=== PATIENT | female | born 2000 | race Two or more races ===

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

== ENCOUNTER 2019-03-06 18:00 | Inpatient (IN) | payer OTHER ==
[~2019-03-06] VITALS: Ht 177.8 cm; Wt 54.4 kg
[~2019-03-06 18:00] MED LIST: ZANTAC150 MG PO
--- NOTE | 2019-03-06 18:23 | NUR ---
PACIENTE ALERTA, ORIENTADA X 3 REFIERE QUE EN LA TARDE DE [place] [facility] PRTESENTADO VOMITOS EXPONTANEOS , MAS DE 8 EPISODIOS DE VOMITOS REFIERE SE SIENTE DEBIL Y SIN FUERZAS. SE UBICA EN OBSERRVACION
--- NOTE | 2019-03-06 18:51 | NUR ---
SE ORIENTA PTE SOBRE TX MEDICO EL CUAL REFIERE ENTENDER.SE LE EXTRAEN MUESTRAS BAJO MEDIDAS ASEPTICAS,SE CANALIZA Y SE ADMINISTRA MEDICAMENTO AMINA ORDEN MEDICA.
--- NOTE | 2019-03-07 07:14 | NUR ---
SE RECIBE PTE DEL TURNO ANTERIOR EN ADALBERTO CON BARANDAS ELEVADAS CON IVFS PATENTE SAMEER DE EDEMA Y ERITEMA , ACOMPANADA POR FAMILIAR NO PRESENTA DOLOR AL MOMENTO. SE MANTIENE EN OBSERVACION Y PENDIENTE A CONSULTA CON
[2019-03-10] MEDS ORDERED: AMOX1TAB5 PO (13:27)
[2019-03-10] MEDS ORDERED: PROTONIX40 MG PO (13:27)
== END 2019-03-10 14:56 | disposition home or self-care (01) | DRG 446 ==
LOC: EMR PED 18:00 → ER 18:01 → MEDJ 03-07 14:43 → SEC-K 03-07 14:43 → MEDJ 03-07 15:40 → SURG 03-09 13:44
PROVIDERS: ADMIT Surgery
PROC: BF37ZZZ Magnetic Resonance Imaging (MRI) of Pancreas (ICD-10-PCS; principal; 2019-03-07)
DX: K81.0 Acute cholecystitis (principal); E86.0 Dehydration; E87.8 Other disorders of electrolyte and fluid balance, not elsewhere classified; K29.00 Acute gastritis without bleeding

== ENCOUNTER 2019-12-04 15:32 | Emergency (ER) | payer OTHER ==
[~2019-12-04] VITALS: Ht 152.4 cm; Wt 56.7 kg
[~2019-12-04 15:32] MED LIST changes: +AMOX1TAB5 PO; +PROTONIX40 MG PO
[2019-12-04] MEDS ORDERED: DOLOGEN 325-11 EACH PO (17:23)
== END 2019-12-04 17:50 | disposition home or self-care (01) ==
LOC: ER 15:32 → EMR PED 15:48 → ER 15:48 → EMR PED 17:50
DX: S30.1XXA Contusion of abdominal wall, initial encounter (principal); M54.2 Cervicalgia; V49.88XA Car occupant (driver) (passenger) injured in other specified transport accidents, initial encounter; Y93.89 Activity, other specified; Y92.488 Other paved roadways as the place of occurrence of the external cause; Y99.8 Other external cause status